=== PATIENT | female | born 1975 ===

== ENCOUNTER 2016-11-16 06:28 | Emergency (ER) | payer MEDICARE, OTHER ==
[2016-11-16 06:50] VITALS: BMI 29.1
[2016-11-16 07:00] VITALS: TEMP 98.7; O2SAT 100
[2016-11-16] MEDS ORDERED: Sodium Chloride 0.9% 1,000 ML IV STA (07:21)
--- NOTE | 2016-11-16 07:30 | ED PDOC ---
Arrival/HPI - General Chief Complaint: GI Problem Time Seen by Provider: 11/16/16 07:09 Historian: Patient - History of Present Illness Narrative History of Present Illness (Text): 11/16/16 07:14 A 41 year old female, whose past medical history includes hypothyroidism, hypertension and schizoaffective disorder, who presents to the emergency department complaining of nausea and vomiting for the past two days. Patient reports her last episode of vomiting was this morning around 0200. She notes having a lot of gas and inability to tolerate PO but denies any diarrhea, bowel changes, abdominal pain, fever, chills, chest pain, or other complaints at this time. Last menstrual cycle started 2 days ago. PMD: Dr. Montgomery Time/Duration: Other (2 days) Symptom Onset: Sudden Symptom Course: Unchanged Quality: Other Activities at Onset: Rest Context: Home Past Medical History - Provider Review Nursing Documentation Reviewed: Yes - Infectious Disease Hx of Infectious Diseases: None - Tetanus Immunization Tetanus Immunization: Unknown - Cardiac Hx Hypertension: Yes - Pulmonary Hx Asthma: Yes - Neurological Hx Neurological Disorder: No - HEENT Other/Comment: wears glasses, unable to see very well - Renal Hx Renal Disorder: No - Endocrine/Metabolic Hx Hypothyroidism: Yes - Hematological/Oncological Hx Blood Disorders: Yes Hx Anemia: Yes - Integumentary Hx Dermatological Disorder: No - Musculoskeletal/Rheumatological Hx Musculoskeletal Disorders: Yes - Gastrointestinal Hx Gastrointestinal Disorders: No - Genitourinary/Gynecological Hx Genitourinary Disorders: No Hx Sexually Transmitted Diseases: No - Psychiatric Hx Depression: Yes Hx Schizophrenia: Yes Hx Substance Use: No - Past Surgical History Past Surgical History: No Previous - Surgical History Hx Tonsillectomy: Yes - Anesthesia Hx Anesthesia: Yes Hx Anesthesia Reactions: No Hx Malignant Hyperthermia: No - Suicidal Assessment Feels Threatened In Home Enviroment: No Family/Social History - Physician Review Nursing Documentation Reviewed: Yes Family/Social History: Unknown Family HX Smoking Status: Former Smoker Hx Alcohol Use: No Hx Substance Use: No Hx Substance Use Treatment: No Allergies/Home Meds Allergies/Adverse Reactions: Allergies haloperidol Allergy (Severe, Verified 11/16/16 06:50) SWELLING metoclopramide Allergy (Severe, Verified 11/16/16 06:50) SWELLING SEIZURE shellfish derived Allergy (Severe, Verified 11/16/16 06:50) RASH prednisone Allergy (Intermediate, Verified 11/16/16 06:50) SWELLING SWELLING aspirin Allergy (Verified 11/16/16 06:50) SWELLING Penicillins Allergy (Verified 11/16/16 06:50) ANAPHYLAXIS Home Medications: Home Meds Medication Instructions Recorded Confirmed LORazepam [Ativan] 1 mg PO DAILY 08/23/16 11/16/16 Review of Systems - Review of Systems Constitutional: absent: Fevers Eyes: absent: Vision Changes ENT: absent: Rhinorrhea Respiratory: absent: SOB Cardiovascular: absent: Chest Pain Gastrointestinal: Nausea, Vomiting, Other (gas). absent: Abdominal Pain, Stool Changes, Diarrhea Genitourinary Female: absent: Dysuria Musculoskeletal: absent: Back Pain Skin: absent: Rash Neurological: absent: Headache, Dizziness Endocrine: absent: Polyuria Psychiatric: absent: Depression Physical Exam Vital Signs Reviewed: Yes Vital Signs Temp Pulse Resp BP Pulse Ox 11/16/16 08:29 69 17 122/67 100 11/16/16 06:53 98.7 F 77 16 115/77 100 Temperature: Afebrile Blood Pressure: Normal Pulse: Regular Respiratory Rate: Normal Appearance: Positive for: Well-Appearing, Non-Toxic, Comfortable Pain Distress: None Mental Status: Positive for: Alert and Oriented X 3 - Systems Exam Head: Present: Atraumatic, Normocephalic Pupils: Present: PERRL Extroacular Muscles: Present: EOMI Conjunctiva: Present: Normal Mouth: Present: Dry (slight) Neck: Present: Normal Range of Motion Respiratory/Chest: Present: Clear to Auscultation, Good Air Exchange. No: Respiratory Distress, Accessory Muscle Use Cardiovascular: Present: Regular Rate and Rhythm, Normal S1, S2. No: Murmurs Abdomen: Present: Normal Bowel Sounds. No: Tenderness, Distention, Peritoneal Signs, Rebound, Guarding Back: Present: Normal Inspection Upper Extremity: Present: Normal Inspection. No: Cyanosis, Edema Lower Extremity: Present: Normal Inspection. No: Edema Neurological: Present: GCS=15, CN II-XII Intact, Speech Normal Skin: Present: Warm, Dry, Normal Color. No: Rashes Psychiatric: Present: Alert, Oriented x 3, Normal Insight, Normal Concentration Medical Decision Making ED Course and Treatment: 11/16/16 07:14 Impression:/Plan: A 41 year old female with nausea and vomiting. She denies any chest pain or shortness of breath. She denies abdominal pain. No fevers. Denies urinary symptoms. She has prior history of gastritis reportedly. Plan: Hydration, check labs, serial exams. Differential Diagnosis include but are not limited to: gastritis vs. gastroenteritis vs. dehydration. Prior Visits: Notes and results from previous visits were reviewed. The patient last presented to the emergency department on 08/23/16 for evaluation of depression. Progress Notes: Patient reports episodes of vomiting, symptoms are not exertional, no chest pain or shortness of breath. IV pepcid and zofran given. There is no abdominal distension or pain with serial exams. EKG: Ordered, reviewed, and independently interpreted the EKG. Rate : 76 BPM Rhythm : NSR Interpretation : No acute ST elevations. 11/16/16 08:42 On re-evaluation, the patient's electrolytes are unremarkable. Patient is able to tolerate PO without difficulty. Patient states nausea has resolved and continues to have no pain at this time. I have discussed the results and plan with the patient, who expresses understanding. Patient in agreement with plan to discharged home. Patient is stable for discharge. I suspect the patient has gastritis. I have recommenced dietary restrictions with slow advancement and to follow up with Dr. Montgomery or return if symptoms worsen or new concerning symptoms arise. 11/16/16 15:32 - Lab Interpretations Lab Results: 11/16/16 08:00 11/16/16 08:00 Lab Results 11/16/16 08:00: Sodium 138, Potassium 4.0, Chloride 100, Carbon Dioxide 26, Anion Gap 16, BUN 10, Creatinine 0.6, Est GFR ( Amer) > 60, Est GFR (Non- Af Amer) > 60, Random Glucose 101, Calcium 8.9, Total Bilirubin 0.6, AST 30, ALT 28, Alkaline Phosphatase 89, Total Protein 8.5 H, Albumin 4.4, Globulin 4.1 , Albumin/Globulin Ratio 1.1 11/16/16 08:00: WBC 9.9 D, RBC 4.10, Hgb 11.3 L, Hct 34.2 L, MCV 83.4, MCH 27.6 , MCHC 33.0, RDW 14.2, Plt Count 379, MPV 9.9, Gran % 71.7 H, Lymph % (Auto) 20.2 L, [place] % (Auto) 6.5 H, Eos % (Auto) 1.4 L, Baso % (Auto) 0.2, Gran # 7.11 H, Lymph # 2.0, Daniels # 0.6, Eos # 0.1, Baso # 0.02 11/16/16 07:39: Urine Color Yellow, Urine Appearance Clear, Urine pH 8.0, Ur Specific [place] 1.015, Urine Protein Negative, Urine Glucose (UA) Negative, Urine Ketones Negative, Urine Blood Trace-lysed H, Urine Nitrate Negative, Urine Bilirubin Negative, Urine Urobilinogen 0.2, Ur Leukocyte Esterase Negative , Urine RBC 1 - 3, Urine WBC 0 - 2, Ur Epithelial Cells 4 - 5, Urine Bacteria Few, Urine HCG, Qual Negative I have reviewed the lab results: Yes - Medication Orders Current Medication Orders: Discontinued Medications Famotidine (Pepcid) 20 mg IVP STAT STA Stop: 11/16/16 07:22 Last Admin: 11/16/16 07:59 Dose: 20 mg Sodium Chloride (Sodium Chloride 0.9%) 1,000 mls @ 1,000 mls/hr IV .Q1H STA Stop: 11/16/16 08:20 Last Admin: 11/16/16 07:59 Dose: 1,000 mls/hr Ondansetron HCl (Zofran Inj) 4 mg IVP ONCE ONE Stop: 11/16/16 07:22 Last Admin: 11/16/16 07:59 Dose: 4 mg - Scribe Statement The provider has reviewed the documentation as recorded by the Natalie Keene Provider Scribe Attestation: All medical record entries made by the Natalie were at my direction and personally dictated by me. I have reviewed the chart and agree that the record accurately reflects my personal performance of the history, physical exam, medical decision making, and the department course for this patient. I have also personally directed, reviewed, and agree with the discharge instructions and disposition. Disposition/Present on Arrival - Present on Arrival Any Indicators Present on Arrival: No History of DVT/PE: No History of Uncontrolled Diabetes: No Urinary Catheter: No History of Decub. Ulcer: No History Surgical Site Infection Following: None - Disposition Have Diagnosis and Disposition been Completed?: Yes Diagnosis: Gastritis Disposition: HOME/ ROUTINE Disposition Time: 08:42 Patient Plan: Discharge Condition: GOOD Discharge Instructions (ExitCare): Gastritis (ED), Acute Nausea and Vomiting ( ED) Additional Instructions: For any fever, any abdominal pain, any bloody urine or stool, any diarrhea, any chest pain or shortness of breath, any persistent or worsening of symptoms, get rechecked. Take mediation as directed. Follow-up with Dr. Tello Montgomery and your lithostripper as discussed. Prescriptions: Famotidine [Pepcid] 20 mg PO DAILY #5 tab Ondansetron ODT [Zofran ODT] 4 mg PO Q8 PRN #6 odt PRN Reason: Nausea/Vomiting Referrals: Tello Montgomery DO [Primary Care Provider] - Follow up with primary Jo Rodrigues MD [Medical Doctor] - Follow up with primary
[2016-11-16 07:44] LABS: URINE BILIRUBIN NEGATIVE (NEGATIVE); URINE BLOOD TRACE-LYSED (NEGATIVE); URINE GLUCOSE (UA) NEGATIVE (NEGATIVE); URINE KETONE NEGATIVE (NEGATIVE); URINE LEUKOCYTE ESTERASE NEGATIVE Leu/uL (NEGATIVE); URINE PROTEIN NEGATIVE mg/dL (<30 mg/dL); URINE UROBILINOGEN 0.2 E.U./dL (<1 E.U./dL)
[2016-11-16 07:47] LABS: URINE APPEARANCE CLEAR (CLEAR); URINE COLOR YELLOW (YELLOW)
[2016-11-16 07:55] LABS: URINE BACTERIA FEW (NEG); URINE WBC 0 - 2 /hpf (0-6)
[2016-11-16 08:01] LABS: ADD MANUAL DIFF? NO
[2016-11-16 08:07] LABS: BASO # 0.02 K/mm3 (0.0-2.0); BASO % 0.2 % (0.0-3.0); EOS # 0.1 (0.0-0.7); EOS % 1.4 % (1.5-5.0); GRAN # 7.11 (1.4-6.5); GRAN % 71.7 % (50.0-68.0); HEMATOCRIT 34.2 % (36.0-48.0); LYMPH % 20.2 % (22.0-35.0); MEAN CELL VOLUME 83.4 fL (80.0-105.0); MEAN CORPUSCULAR HEMOGLOBIN 27.6 pg (25.0-35.0); MEAN PLATELET VOLUME 9.9 fl (7.0-11.0); MONO # 0.6 (0.1-0.6); MONO % 6.5 % (1.0-6.0); PLATELET COUNT 379 10^3/uL (120.0-450.0); RED CELL DISTRIBUTION WIDTH 14.2 % (11.5-14.5); WHITE BLOOD COUNT 9.9 10^3/ul (4.5-11.0)
[2016-11-16 08:13] LABS: ALB/GLOB RATIO 1.1 (1.1-1.8); ALKALINE PHOSPHATASE 89 U/L (38-133); ALT/SGPT 28 U/L (7-56); AST/SGOT 30 U/L (15-39); BILIRUBIN,TOTAL 0.6 mg/dL (0.2-1.3); BLOOD UREA NITROGEN 10 mg/dL (7-21); CALCIUM 8.9 mg/dL (8.4-10.5); CARBON DIOXIDE 26 mmol/L (21-33); CHLORIDE 100 mmol/L (95-110); GFR AFRICAN-AMERICAN > 60; GLUCOSE,RANDOM 101 mg/dL (70-110); SODIUM 138 mmol/L (132-148); TOTAL PROTEIN 8.5 g/dL (5.8-8.3)
[2016-11-16 08:53] VITALS: BP 122/67; PULSE 69; RESP 17
--- NOTE | 2016-11-17 09:52 | CARD ---
APPROVED REPORT EKG Measurement Heart [id number] <Conclusion> Normal sinus rhythm Normal ECG
== END 2016-11-16 08:57 | disposition home or self-care (01) ==
LOC: ED 06:28
DX: K29.70 Gastritis, unspecified, without bleeding (principal)
CPT/HCPCS: 80053; 81001; 84703; 85025; 93005; 96361; 96374; 96375; 99283; J2405; J7040

== ENCOUNTER 2016-11-18 23:44 | Emergency (ER) | payer MEDICARE, OTHER ==
[2016-11-18 23:44] VITALS: BMI 29.1
[2016-11-19 00:02] VITALS: TEMP 97.9
--- NOTE | 2016-11-19 00:27 | ED PDOC ---
Arrival/HPI - General Chief Complaint: Psychiatric Evaluation Time Seen by Provider: 11/19/16 00:01 Historian: Patient - History of Present Illness Narrative History of Present Illness (Text): 11/19/16 00:24 Debra Long is a 41 year old female, with a history of schizoaffective disorder bipolar type, presents to the emergency department complaining of depression and delusion since tonight. Patient is non-compliant with her medication. Denies any suicidal or homicidal ideation. Denies any fever, chills , headache, dizziness, chest pain, shortness of breath, abdominal pain, nausea, vomiting, diarrhea, urinary symptoms, or any other complaints at this time. Time/Duration: Other (tonight ) Symptom Course: Unchanged Severity Level: Mild Activities at Onset: Light Past Medical History - Provider Review Nursing Documentation Reviewed: Yes - Infectious Disease Hx of Infectious Diseases: None - Tetanus Immunization Tetanus Immunization: Unknown - Cardiac Hx Hypertension: Yes - Pulmonary Hx Asthma: Yes - Neurological Hx Neurological Disorder: No - HEENT Other/Comment: wears glasses, unable to see very well - Renal Hx Renal Disorder: No - Endocrine/Metabolic Hx Hypothyroidism: Yes - Hematological/Oncological Hx Blood Disorders: Yes Hx Anemia: Yes - Integumentary Hx Dermatological Disorder: No - Musculoskeletal/Rheumatological Hx Musculoskeletal Disorders: Yes - Gastrointestinal Hx Gastrointestinal Disorders: No - Genitourinary/Gynecological Hx Genitourinary Disorders: No Hx Sexually Transmitted Diseases: No - Psychiatric Hx Depression: Yes Hx Schizophrenia: Yes Hx Substance Use: No - Past Surgical History Past Surgical History: No Previous - Surgical History Hx Tonsillectomy: Yes - Anesthesia Hx Anesthesia: Yes Hx Anesthesia Reactions: No Hx Malignant Hyperthermia: No - Suicidal Assessment Feels Threatened In Home Enviroment: No Family/Social History - Physician Review Nursing Documentation Reviewed: Yes Family/Social History: No Known Family HX Smoking Status: Former Smoker Hx Alcohol Use: No Hx Substance Use: No Hx Substance Use Treatment: No Allergies/Home Meds Allergies/Adverse Reactions: Allergies haloperidol Allergy (Severe, Verified 11/16/16 06:50) SWELLING metoclopramide Allergy (Severe, Verified 11/16/16 06:50) SWELLING SEIZURE shellfish derived Allergy (Severe, Verified 11/16/16 06:50) RASH prednisone Allergy (Intermediate, Verified 11/16/16 06:50) SWELLING SWELLING aspirin Allergy (Verified 11/16/16 06:50) SWELLING Penicillins Allergy (Verified 11/16/16 06:50) ANAPHYLAXIS Home Medications: Home Meds Medication Instructions Recorded Confirmed Albuterol HFA [Ventolin HFA 90 2 puff PO DAILY 11/19/16 11/19/16 mcg/actuation (8 g)] Alprazolam [Xanax] 0.25 mg PO DAILY 11/19/16 11/19/16 Aluminum Hydroxide [Aluminum 5 ml PO DAILY 11/19/16 11/19/16 Hydroxide Gel 320mg /5ml Susp (Bulk)] Benztropine [Benztropine Mesylate] 1 mg PO HS 11/19/16 11/19/16 Docusate Sodium/Sennosides A 50 mg PO DAILY 11/19/16 11/19/16 [Senokot S 50 MG-8.6 MG] LORazepam [Ativan] 1 mg PO DAILY 11/19/16 11/19/16 Levothyroxine [Synthroid] 125 mcg PO DAILY 11/19/16 11/19/16 Olanzapine [Olanzapine Odt] 15 mg PO HS 11/19/16 11/19/16 Promethazine DM [Phenergan DM 1 tsp PO TID 11/19/16 11/19/16 Syrup] Ramipril [Altace] 10 mg PO DAILY 11/19/16 11/19/16 Tramadol HCl [Ultram] 50 mg PO BID 11/19/16 11/19/16 Zolpidem Tartrate [Ambien] 10 mg PO HS 11/19/16 11/19/16 Review of Systems - Physician Review All systems were reviewed & negative as marked: Yes - Review of Systems Constitutional: Normal. absent: Fatigue, Fevers Respiratory: Normal. absent: SOB, Cough, Sputum Cardiovascular: Normal. absent: Chest Pain, Palpitations Gastrointestinal: Normal. absent: Abdominal Pain, Diarrhea, Nausea, Vomiting Genitourinary Female: Normal Neurological: Normal. absent: Headache, Dizziness Psychiatric: Depression, Other (delusion ). absent: Suicidal Ideation Physical Exam Vital Signs Reviewed: Yes Vital Signs Temp Pulse Resp BP Pulse Ox 11/19/16 08:02 64 16 137/84 98 11/19/16 05:29 84 18 126/76 99 11/18/16 23:57 97.9 F 86 18 132/64 97 Temperature: Afebrile Blood Pressure: Normal Pulse: Regular Respiratory Rate: Normal Appearance: Positive for: Well-Appearing, Non-Toxic, Comfortable Pain Distress: None Mental Status: Positive for: Alert and Oriented X 3 - Systems Exam Head: Present: Atraumatic, Normocephalic Pupils: Present: PERRL Extroacular Muscles: Present: EOMI Conjunctiva: Present: Normal Mouth: Present: Moist Mucous Membranes Neck: Present: Normal Range of Motion Respiratory/Chest: Present: Clear to Auscultation, Good Air Exchange. No: Respiratory Distress, Accessory Muscle Use Cardiovascular: Present: Regular Rate and Rhythm, Normal S1, S2. No: Murmurs Abdomen: Present: Normal Bowel Sounds. No: Tenderness, Distention, Peritoneal Signs Upper Extremity: Present: Normal Inspection. No: Cyanosis, Edema Lower Extremity: Present: Normal Inspection. No: Edema Neurological: Present: GCS=15, CN II-XII Intact, Speech Normal, Motor Func Grossly Intact, Normal Sensory Function Skin: Present: Warm, Dry, Normal Color. No: Rashes Psychiatric: Present: Alert, Oriented x 3, Depressed Mood. No: Suicidal Ideation, Homicidal Ideation Medical Decision Making ED Course and Treatment: 11/19/16 00:24 Impression: A 44 year old female who presents to the emergency department complaining of depression and delusions. Plan: -- EKG -- Alcohol level -- Drug Screen -- Labs -- Chest X-ray -- Urinalysis -- Reassess and disposition Progress Notes: 11/19/16 00:58 EKG reviewed by me: NSR @ 85 bpm. Normal axis. Normal interval. Chest X-ray interpreted by me: No acute processes Patient is medical cleared for PES evaluation. - Lab Interpretations Lab Results: 11/19/16 00:50 11/19/16 00:50 Lab Results 11/19/16 03:05: Urine Color Yellow, Urine Appearance Sl cloudy, Urine pH 6.0, Ur Specific [place] >= 1.030, Urine Protein 30 H, Urine Glucose (UA) Negative, Urine Ketones 40 H, Urine Blood Moderate H, Urine Nitrate Negative, Urine Bilirubin Moderate H, Urine Urobilinogen 1.0 H, Ur Leukocyte Esterase Negative, Urine RBC 2 - 5, Urine WBC 1 - 3, Ur Epithelial Cells 3 - 4, Urine Bacteria Small, Urine Other Mucus, Urine HCG, Qual Negative 11/19/16 03:05: Urine Opiates Screen Negative, Urine Methadone Screen Negative, Ur Barbiturates Screen Negative, Ur Phencyclidine Scrn Negative, Ur Amphetamines Screen Negative, U Benzodiazepines Scrn Positive H, U Oth Cocaine Metabols Negative, U Cannabinoids Screen Negative 11/19/16 00:50: Alcohol, Quantitative < 10 11/19/16 00:50: Salicylates < 1 L, Acetaminophen < 10.0 L 11/19/16 00:50: Sodium 141, Potassium 4.0, Chloride 107, Carbon Dioxide 21, Anion Gap 17, BUN 7, Creatinine 0.6, Est GFR ( Amer) > 60, Est GFR (Non- Af Amer) > 60, Random Glucose 103, Calcium 9.7, Total Bilirubin 0.7, AST 24, ALT 22, Alkaline Phosphatase 97, Total Protein 9.2 H, Albumin 4.7, Globulin 4.5 , Albumin/Globulin Ratio 1.0 L 11/19/16 00:50: WBC 10.5, RBC 4.43, Hgb 12.3, Hct 36.9, MCV 83.3, MCH 27.8, MCHC 33.3, RDW 14.4, Plt Count 422, MPV 10.1, Gran % 67.4, Lymph % (Auto) 22.9, [place] % (Auto) 7.3 H, Eos % (Auto) 2.2, Baso % (Auto) 0.2, Gran # 7.07 H, Lymph # 2.4, [place] # 0.8 H, Eos # 0.2, Baso # 0.02 - RAD Interpretation Narrative RAD Interpretations (Text): 11/19/16 06:36 chest nad Radiology Orders: 11/19/16 04:40 CHEST PORTABLE [RAD] Stat - Medication Orders Current Medication Orders: Discontinued Medications Alprazolam (Xanax) 0.5 mg PO STAT STA PRN Reason: Protocol Stop: 11/19/16 05:27 Last Admin: 11/19/16 05:40 Dose: 0.5 mg - Scribe Statement The provider has reviewed the documentation as recorded by the Lanceiblouise Aviles Provider Attestation: Provider Scribe Attestation: All medical record entries made by the Lanceiblouise were at my direction and personally dictated by me. I have reviewed the chart and agree that the record accurately reflects my personal performance of the history, physical exam, medical decision making, and the department course for this patient. I have also personally directed, reviewed, and agree with the discharge instructions and disposition. Disposition/Present on Arrival - Present on Arrival Any Indicators Present on Arrival: No History of DVT/PE: No History of Uncontrolled Diabetes: No Urinary Catheter: No History of Decub. Ulcer: No History Surgical Site Infection Following: None - Disposition Have Diagnosis and Disposition been Completed?: Yes Diagnosis: Manic bipolar I disorder, Depression Disposition: Trans to Other Acute Care Hosp Disposition Time: 07:00 Patient Problems: Current Active Problems Problem Status Onset Altered mental status Acute Prophylactic measure Acute Schizophrenia Acute Schizophrenia Chronic Condition: GOOD Additional Instructions: pt is medically stable for psychiatric admission and transfer Referrals: Dexter Rodgers MD [Primary Care Provider] - Follow up with primary
[2016-11-19 01:06] LABS: ADD MANUAL DIFF? NO
[2016-11-19 01:23] LABS: BASO # 0.02 K/mm3 (0.0-2.0); BASO % 0.2 % (0.0-3.0); EOS # 0.2 (0.0-0.7); EOS % 2.2 % (1.5-5.0); GRAN # 7.07 (1.4-6.5); GRAN % 67.4 % (50.0-68.0); HEMATOCRIT 36.9 % (36.0-48.0); LYMPH # 2.4 (1.2-3.4); LYMPH % 22.9 % (22.0-35.0); MEAN CELL VOLUME 83.3 fL (80.0-105.0); MEAN CORPUSCULAR HEMOGLOBIN 27.8 pg (25.0-35.0); MEAN CORPUSCULAR HGB CONC 33.3 g/dl (31.0-37.0); MEAN PLATELET VOLUME 10.1 fl (7.0-11.0); MONO # 0.8 (0.1-0.6); MONO % 7.3 % (1.0-6.0); PLATELET COUNT 422 10^3/uL (120.0-450.0); RED CELL DISTRIBUTION WIDTH 14.4 % (11.5-14.5); WHITE BLOOD COUNT 10.5 10^3/ul (4.5-11.0)
[2016-11-19 01:29] LABS: ALKALINE PHOSPHATASE 97 U/L (38-133); ALT/SGPT 22 U/L (7-56); AST/SGOT 24 U/L (15-39); BILIRUBIN,TOTAL 0.7 mg/dL (0.2-1.3); BLOOD UREA NITROGEN 7 mg/dL (7-21); CALCIUM 9.7 mg/dL (8.4-10.5); CARBON DIOXIDE 21 mmol/L (21-33); CHLORIDE 107 mmol/L (98-107); GFR AFRICAN-AMERICAN > 60; GLUCOSE,RANDOM 103 mg/dL (70-110); SODIUM 141 mmol/L (132-148); TOTAL PROTEIN 9.2 g/dL (5.8-8.3)
[2016-11-19 03:26] LABS: URINE BILIRUBIN MODERATE (NEGATIVE); URINE BLOOD MODERATE (NEGATIVE); URINE GLUCOSE (UA) NEGATIVE (NEGATIVE); URINE KETONE 40 mg/dL (NEGATIVE); URINE LEUKOCYTE ESTERASE NEGATIVE Leu/uL (NEGATIVE); URINE PROTEIN 30 mg/dL (<30 mg/dL)
[2016-11-19 03:28] LABS: URINE APPEARANCE SL CLOUDY (CLEAR); URINE COLOR YELLOW (YELLOW)
[2016-11-19 03:39] LABS: URINE BACTERIA SMALL (NEG)
[2016-11-19 08:02] VITALS: BP 137/84; PULSE 64; RESP 16; O2SAT 98
--- NOTE | 2016-11-19 08:42 | RAD ---
HISTORY: pes COMPARISON: 02/26/2016 FINDINGS: LUNGS: No active pulmonary disease. PLEURA: No significant pleural effusion identified, no pneumothorax apparent. CARDIOVASCULAR: Normal. OSSEOUS STRUCTURES: No significant abnormalities. VISUALIZED UPPER ABDOMEN: Normal. OTHER FINDINGS: None. IMPRESSION: No active disease.
--- NOTE | 2016-11-19 22:38 | CARD ---
APPROVED REPORT EKG Measurement Heart [id number] <Conclusion> Normal sinus rhythm Normal ECG
== END 2016-11-19 08:10 | disposition short-term general hospital (02) ==
LOC: ED 23:44
DX: F31.10 Bipolar disorder, current episode manic without psychotic features, unspecified (principal); F32.9 Major depressive disorder, single episode, unspecified
CPT/HCPCS: 71010; 80053; 81001; 84703; 85025; 90791; 93005; 99284; G0480